=== PATIENT | male | born 1985 | race Caucasian/White ===

== ENCOUNTER → 2020-07-29 11:40 | Outpatient (BNVA) | payer MEDICARE, MEDICAID, SELFPAY | PROVIDERS: PCP Hospitalist; Visit Provider Urology | DX: A63.0 Anogenital (venereal) warts (principal) | CPT/HCPCS: 99212 ==

== ENCOUNTER 2021-03-09 14:59 | Outpatient (REF) | payer MEDICARE, MEDICAID, SELFPAY ==
--- NOTE | 2021-03-09 16:03 | MHC.AU.ANR ---
Adult Audiological Evaluation Date of Visit: 03/09/21 Reason for Appointment: Audiological re-evaluation to monitor the status of Mr. Dave's hearing loss. He has a know bilateral, asymmetrical, sensorineural hearing loss with his left ear hearing worse than his left. He has not used hearing aids before. Mr. Dave reports that age 19 experienced a sudden loss of hearing and onset of tinnitus, believed to be caused by a virus. Does patient feel they have a hearing loss?: If Yes, Which Ear?: Yes, both ears When Was Hearing Difficulty First Noticed?: 2006, age 19 Has hearing been tested previously?: Yes Previous Hearing Test Results: [facility] of [facility], 01/30/2019- Right ear- Normal hearing through 1000 Hz, sloping to a mild to severe sensorineural hearing loss from 4107-2202 Hz. Left ear- Normal hearing through 500 Hz, sloping to a mild to severe sensorineural hearing loss from 7056-3217 Hz. Left ear hears worse than the right. Ear History: Bothersome Tinnitus/Ringing/Noises in Ears: Both Ears Medical History: Medical History: Multiple Sclerosis Otoscopy: Right Ear: Unremarkable Left Ear: Unremarkable Tympanometry: Tympanometry performed due to: To assess integrity of the middle ear system Right Ear: Normal Middle Ear System (Type A) Left Ear: Normal Middle Ear System (Type A) Hearing Evaluation: Transducer(s) Used: Insert Earphones, Bone Conduction Method: Conventional Audiometry Stimuli Used: Pure Tones Right Ear: Description of Hearing: Normal hearing from 250-750 Hz, sloping to a mild to severe sensorineural hearing loss from 9574-2251 Hz. Left Ear: Description of Hearing: Normal hearing at 250 Hz, sloping to a mild to severe sensorineural hearing loss from 500-8000 Hz. Hearing in the left ear is 10-30 dBHL worse than the right from 500-2000 Hz and 8335-5701 Hz. Speech Recognition Threshold (SRT): Method Used: Monitored Live Voice Stimuli Used: Spondee Words Right Ear: 20 dBHL Left Ear: 35 dBHL Word Discrimination: Method: Recorded Lists Word Lists Used: NU-6 Right Ear: 92% at 60 dBHL Left Ear: 44% at 75 dBHL, 52% at 85 dBHL. Patient noted that sounds are more harsh and distorted in the left ear. Binaural: 96% at 80 dBHL Comparison: Compared to the most recent evaluation: Hearing is stable. Recommendations: Audiological re-evaluation in one year. ,Trial with amplification is recommended. Medical clearance from a physician is required before fitting. Binaural amplification is recommended. Discussed options with Mr. Dave. He is interested in a pair of MINERVA style hearing aids. Hearing aids will be ordered once medical clearance for hearing aid use is received from his PCP. Diagnosis: Primary Diagnosis: H90.3 Bilateral Sensorineural Hearing Loss Secondary Diagnosis: H93.13 Tinnitus, Bilateral Services Performed: Services Performed: Comprehensive Audiological Evaluation (CPT 67731) Tympanometry (CPT 88144) Signature: Provider: Serg Herrera, CCC-A
--- NOTE | 2021-03-09 16:13 | MHC.AU.HAS ---
Hearing Aid Evaluation Date of Visit: 03/09/21 Historical Information: Description of Hearing: Asymmetrical, mild to severe, SNHL with the left ear hearing worse than the right. Current personal amplification information, if applicable: None Summary: Based on the type and degree of Mr. Dave's hearing loss, binaural hearing aid use is recommended to help facilitate improved communication. He noted that the sound quality in his left ear is sharp and distorted, so he was advised if he cannot tolerate amplification to the left ear, a monaural fitting for the right ear will help as well. Agreed to try a binaural fitting with MINERVA style hearing aids. Hearing Aid Prescription: Based on the individual?s shared listening needs, communication environments, dexterity, desire for connectivity, and personal preferences, the following prescription for amplification has been made: Right ear: Precision Agriculture Specialist: [employer] Model: StackSearcheo P70-13T Battery Size: 13 Color: P4 - Roberta Papier Mache Molder: Size 1 M Left ear: Left ear prescription to be same as Right Hearing Aid above: Precision Agriculture Specialist: Phonak Model: [place] P70-13T Battery Size: 13 Color: P4 - Roberta Plan of Care: Medical Clearance to be requested from PCP/ENT. Hearing aids will be ordered when medical clearance is received. Hearing Instrument Fitting to be scheduled when materials arrive. Primary Diagnosis: H90.3 Bilateral Sensorineural Hearing Loss Secondary Diagnosis: H93.13 Tinnitus, Bilateral Signature: Provider: Serg Herrera, [facility]3]-A
--- NOTE | 2021-03-09 16:14 | MHC.AU.MED ---
Medical Clearance for Hearing Instrumentation Date: 03/09/21 Patient Name: Cale Dave Date of : 1985 Referring Provider: Migel He MD We have seen your patient on 03/09/21 and have determined that they are a candidate for amplification (See accompanying report). Specifically, they would benefit from: Hearing aid use in both ears There is a statute that addresses Medical Evaluation Requirements prior to fitting a patient with a hearing aid. According to [place] statute 265 CMR:6.03(1), (a) General. Except as provided in 265 CMR 6.03(1)(b), a second grade teacher shall not sell a hearing aid unless the prospective user has presented to the second grade teacher a written statement signed by a licensed physician that states that the patient's hearing loss has been medically evaluated and the patient may be considered a candidate for a hearing aid. The medical evaluation must have taken place within the preceding six months. Please note: Due to the [place] Statute referenced above, we cannot accept a signature other than that of a licensed physician. PILL PACKER and PA signatures cannot be accepted. I am in agreement with the above recommendation. There is no medical contraindication for hearing instrumentation. Physician Signature Date Physician Name (Printed)
== END 2021-03-09 15:00 | disposition home or self-care (01) ==
LOC: HO.SH 14:59
PROVIDERS: Visit Provider Hospitalist
DX: H90.3 Sensorineural hearing loss, bilateral (principal); H93.13 Tinnitus, bilateral
CPT/HCPCS: 92557; 92567; 92591

== ENCOUNTER 2021-04-21 15:09 | Outpatient (REF) | payer MEDICARE, MEDICAID, SELFPAY | END 2021-04-21 15:10 | disposition home or self-care (01) | LOC: HO.HAP 15:09 | PROVIDERS: Visit Provider Hospitalist | DX: Z46.1 Encounter for fitting and adjustment of hearing aid (principal); H90.3 Sensorineural hearing loss, bilateral; H93.13 Tinnitus, bilateral | CPT/HCPCS: V5011; V5020; V5160; V5261; V5266 ==

== ENCOUNTER 2021-05-07 03:01 | Emergency (ER) | payer MEDICARE, MEDICAID, SELFPAY ==
--- NOTE | ~2021-05-07 | XR_ITS ---
EXAMINATION: XR CHEST CLINICAL INFORMATION: Cough and shortness of breath COMPARISON: None TECHNIQUE: Frontal view of the chest was obtained. FINDINGS: Normal symmetric lung volumes. No parenchymal consolidation. No pleural effusion. No pneumothorax. Cardiomediastinal silhouette and pulmonary vascularity are within normal limits. No acute osseous abnormalities. XR/XR chest 1V IMPRESSION: No acute findings
[2021-05-07 03:10] VITALS: BP 125/77; PULSE 58; RESP 16; TEMP 37.2; O2SAT 100; BMI 24.0
[2021-05-07 03:50] LABS: COVID-19 Test Positive (Negative); IDNOW Serial# 9DD0AD1C
--- NOTE | 2021-05-07 05:19 | ED.SOB ---
HPI - SOB/Dyspnea General Chief Complaint: Dyspnea Stated Complaint: low O2, COVID + Time Seen by Provider: 05/07/21 04:22 Source: patient Mode of arrival: ambulatory History of Present Illness HPI Narrative: 36-year-old male with history MS who presents as an on vaccinated individual, who was diagnosed with COVID-19 on Tuesday and has subsequently undergone antibody infusion at [facility]. Patient presents with persistent sensation of difficulty breathing as well as anxiety. Related Data Home Medications Medication Instructions Recorded Confirmed betamethasone, augmented 0.05 % appl TOPICAL 07/29/20 topical cream buprenorphine 8 mg-naloxone 2 mg 20 mg SUBLINGUAL DAILY 07/29/20 sublingual film buspirone 10 mg tablet 10 mg PO BID 07/29/20 dextroamphetamine-amphetamine 30 1 tab PO BID 07/29/20 mg tablet tacrolimus 0.1 % topical ointment TOPICAL BID 07/29/20 Allergies Allergy/AdvReac Type Severity Reaction Status Date / Time No Known Allergies Allergy Unverified 01/17/20 16:46 [No Known Allergies*] Review of Systems Review of Systems: Pertinent positives and negatives as stated in HPI and 10 point review of systems is otherwise negative. [facility] Past Medical History Source: nursing notes reviewed Medical History Attention deficit disorder (ADD) Lyme disease Male infertility Penile wart Physical Exam Vital Signs: Vital Signs: Last Vital Signs Temp 98.9 F 05/07/21 03:10 Pulse 58 05/07/21 03:10 Resp 16 05/07/21 03:10 BP 125/77 05/07/21 03:10 Pulse Ox 100 05/07/21 03:10 BMI result Body Mass Index 24.0 VITAL SIGNS: Reviewed. GENERAL: Well developed, well nourished, in no acute distress. HEAD: Normocephalic/atraumatic EYES: PERRLA, EOMI EARS: Ext canals without abnormality, TMs non-bulging and non-erythematous NOSE: Nares patent bilateral OROPHARYNX: no oral lesions noted, posterior pharynx clear and non-erythematous without noted tonsillar enlargement/erythema/exudates NECK: Supple, no adenopathy LUNGS: Normal breath sounds. No adventitious sounds or accessory muscle use. SpO2<100> CARDIOVASCULAR: Regular rate and rhythm without noted murmurs ABDOMEN: Soft, non-tender, non-distended with bowel sounds. SKIN: Inspection of the skin reveals no rashes NEUROLOGIC: Alert and oriented x 4. Strength and sensation to light touch were grossly intact x 4. Course Course Course Narrative: 36-year-old male with history and clinical presentation consistent with natural course of COVID-19 infection and repeat testing as well as chest x-ray demonstrate positive COVID-19 test and chest x-ray is otherwise benign. Patient was informed of all results, reassured and otherwise noted to be without tachypnea or tachycardia, patient is afebrile and otherwise oxygenating very well on room air. He was instructed to return home and continue with isolation as per all state and Federal guidelines. MDM - SOB/Dyspnea Lab Data Labs: Lab Results 05/07/21 Range/Units 03:33 COVID-19 (IVON) Positive A (Negative) COVID-19 Clin Com See Note Discharge Plan Discharge Clinical Impression: Viral syndrome, Lab test positive for detection of COVID-19 virus Patient Disposition: Home, Self-Care Instructions: Viral Syndrome (ED), COVID-19 (Coronavirus Disease 2019) (ED) Additional Instructions: 1. Increase fluid hydration, especially with water. 2. Recommend [id number] Tylenol/ibuprofen as needed for body aches, headaches, temperatures greater than 100.4. 3. Follow-up with your primary care provider via telemedicine appointment in the next 1-2 days for re-evaluation and further outpatient management. You have been diagnosed with COVID-19 and was isolate for the next 14 days and follow all state, Federal guidelines. Return to the ER for worsening symptoms. Interventions: ED Discharge Assessment Last Done: 05/07/21 05:01
== END 2021-05-07 05:35 | disposition home or self-care (01) ==
LOC: HO.ED 05:25
PROVIDERS: Emergency Provider Student in an Organized Health Care Education/Training Program
DX: U07.1 COVID-19 (principal); B34.9 Viral infection, unspecified; R06.02 Shortness of breath; F41.9 Anxiety disorder, unspecified; G35 Multiple sclerosis
CPT/HCPCS: 71045; 87635; 99282; 99283

== ENCOUNTER 2023-11-08 08:43 | Outpatient (AMB) | payer MEDICARE, MEDICAID, SELFPAY ==
--- NOTE | 2023-11-08 08:48 | A.OFFVIS_ITS ---
Intake Visit Reasons: Fertility and issue Intake Note: New patient is present for Fertility Issues. Last seen By Dr Li 2020 Urology Med:None Antibiotic Allergies: None Blood Thinner: None Patient has been trying to conceive for about a year with no success Business Segment Manager Required: No Allergies No Known Allergies [No Known Allergies*] Allergy (Verified 11/08/23 08:51) HPI Comments Details: Cale BRITO is a very pleasant male. They are a patient of Dr He. They are seen in the office today for the following urologic conditions. - male fertility Male infertility Has been trying with partner for over 12 months. She is currently 37 Baseline evaluation for testosterone 240 at [facility] Longstanding use of Suboxone Plan for initial evaluation with sperm evaluation and repeat full panel hormone labs [facility] Medical History (Updated 11/08/23 @ 09:10 by Trace Li MD) Attention deficit disorder (ADD) Lyme disease Male infertility Penile wart Review of Systems Const Denies chills and Denies fever(s) Card Reports no additional complaints and Denies syncope Resp Denies cough GI Denies abdominal pain and Denies heartburn Reports as per HPI and Denies change in libido Neuro Denies syncope Psych Denies change in libido Endo Denies change in libido Physical Exam Const General: cooperative, healthy appearing, comfortable and no acute distress Orientation/consciousness: patient oriented x3 HEENT Face and sinus: Yes normal facial exam Mouth: moist mucous membranes Neck Neck: Yes normal visual inspection, Yes full ROM and Yes trachea midline Chest Chest palpation & inspection: normal inspection of the chest Resp Effort & Inspection: normal respiratory effort, able to speak in complete sentences and no respiratory distress GI Inspection: Yes normal to inspection Back/Spine/Pelvis Cervical Spine: normal cervical lordosis Thoracic/Lumbar Spine: thoracic and lumbar spine normal to inspection Skin General skin exam: no rashes or lesions noted Neuro General: patient oriented x3, gait normal, tone normal and moves all extremities Extrem General: Yes normal to inspection and Yes capillary refill normal Assessment & Plan Assessment & Plan (1) Male infertility: Code(s): N46.9 - Male infertility, unspecified Category: Medical Plan Sperm testing Baseline hormonal labs Orders: Orders Lutenizing Hormone Today N46.9 - Male infertility, unspecified Prolactin Today N46.9 - Male infertility, unspecified Testosterone, Free/Total Today N46.9 - Male infertility, unspecified Follicle Stimulating Hormone Today N46.9 - Male infertility, unspecified Patient Instructions: Imaging studies, laboratory and physical exam results were discussed and reviewed in detail. No major barriers to patient understanding were identified. An opportunity to ask questions regarding the treatment plan was provided. All questions were answered. The patient expressed understanding and agreement with the above treatment plan. The patient is aware they should contact our office by phone for worsening of their current condition or the appearance of new urologic symptoms. Compliance is encouraged with any medications and followup testing that is ordered. It is a privilege to participate in the urologic care of your patient. If you have any questions or concerns regarding treatment for the above conditions, or other urologic issues, please do not hesitate to contact me. The office telephone contact is [phone]. This note is constructed using voice recognition software. While every effort has been made to ensure accuracy gis coordinator errors may have been included. Yours sincerely, Dr Trace Li MD, [facility] - Urology Providers of Expert, Compassionate Care for the Genitourinary System Coding Level of Care Code Est Pt Level 4 (52755) Diagnoses Male infertility N46.9
== END 2023-11-08 09:27 | disposition home or self-care (01) ==
PROVIDERS: PCP Internal Medicine; Visit Provider Urology
DX: N46.9 Male infertility, unspecified (principal)

== ENCOUNTER → 2023-11-08 08:43 | Outpatient (BNVA) | payer MEDICARE, MEDICAID, SELFPAY | PROVIDERS: PCP Internal Medicine; Visit Provider Urology | DX: N46.9 Male infertility, unspecified (principal) | CPT/HCPCS: 36415; 83001; 83002; 84146; 84402; 84403; 99213 ==

== ENCOUNTER 2023-11-08 09:26 | Outpatient (REF) | payer MEDICARE, MEDICAID, SELFPAY ==
[2023-11-09 10:09] LABS: Follicle Stimulating Hormone 2.9 mIU/mL (1.4-12.8); Lutenizing Hormone 2.5 mIU/mL (1.5-9.3); Prolactin 3.6 ng/mL (2.0-18.0)
[2023-11-13 11:09] LABS: Testosterone, Total 299 ng/dL (250-1100)
== END 2023-11-08 09:27 | disposition home or self-care (01) ==
LOC: HO.10HDL 09:26
PROVIDERS: Visit Provider Urology
DX: Z13.89 Encounter for screening for other disorder (principal)
CPT/HCPCS: 36415; 83001; 83002; 84146; 84402; 84403

== ENCOUNTER 2023-12-14 08:25 | Outpatient (AMB) | payer MEDICARE, MEDICAID, SELFPAY ==
--- NOTE | 2023-12-14 08:25 | A.OFFVIS_ITS ---
Intake Visit Reasons: 1M Follow Up-Baseline Hormone Lab(set) Intake Note: Patient is Present for Telephone Follow Up Labs Urology Med: None Antibiotic Allergy:None Blood Thinner: None State Editor Required: No Allergies varenicline [From Chantix] Allergy (Mild, Verified 12/14/23 08:29) Unknown Medication List - Last Reconciled 12/14/23 by Trace Li MD betamethasone, augmented 0.05 % appl topical buprenorphine-naloxone 8-2 mg 20 mg sublingual DAILY buspirone 10 mg PO BID dextroamphetamine-amphetamine 30 mg 1 tab PO BID tacrolimus 0.1% topical BID tadalafil 5 mg PO DAILY 90 days HPI Comments Details: Cale BRITO is a very pleasant male. He is a patient of Dr He. He is seen in the office today for the following urologic conditions. - male fertility - hypogonadism Telemedicine Evaluation 15 min Consultation [employer] Seema Video Discussed findings Total motile sperm count normal Testosterone is borderline low Trial tadalafil for testosterone boost Lab work 6 months Male infertility Has been trying with partner for over 12 months. She is currently 37 Baseline evaluation for testosterone 240 at [facility] Longstanding use of Suboxone Labs - 11/22 testosterone 299, free T 41, FSH 2.9, LH 2.5 Semen analysis - 11/22 [place] - Total Motile Count 195 Plan for initial evaluation with sperm evaluation and repeat full panel hormone labs [facility] Medical History (Updated 12/14/23 @ 09:11 by Trace Li MD) Multiple sclerosis, relapsing-remitting History of intravenous drug use in remission Major depression Former smoker Attention deficit disorder (ADD) Lyme disease Male infertility Penile wart Surgical History (Updated 12/14/23 @ 08:29 by KAYCEE French) History of tonsillectomy H/O lymph node biopsy History of esophagogastroduodenoscopy (EGD) Family History (Updated 12/14/23 @ 08:30 by KAYCEE French) Mother Breast cancer Review of Systems Const All systems reviewed & are unremarkable except as noted in HPI and below Reports no additional complaints Resp Reports no additional complaints GI Reports no additional complaints Reports as per HPI Musc Reports no additional complaints Physical Exam Telemedicine evaluation Appropriate responses Regular breathing rate and rhythm HEENT Head: Yes normal to inspection Ears: hearing grossly normal bilaterally Eyes General: appearance normal, both eyes and all related structures Neck Neck: Yes normal visual inspection Chest Chest palpation & inspection: normal inspection of the chest Resp Effort & Inspection: normal respiratory effort and able to speak in complete sentences Telehealth Telehealth Telehealth Platform: [employer] Location of provider rendering services: practice address Location of patient: address on file Patient Identification confirmed using: Name, : Yes Telehealth method: video Patient verbally consented to treatment: Yes Patient verbally consented to billing insurance company: Yes Patient informed of any privacy concerns related to visit: Yes Minutes spent on Phone/Video with Pt.: 15 Assessment & Plan Assessment & Plan (1) Hypogonadism in male: Code(s): E29.1 - Testicular hypofunction Category: Medical Plan Six-month follow-up testosterone Orders: Orders Testosterone, Total 6 Months E29.1 - Testicular hypofunction Medications: New tadalafil 5 mg PO DAILY 90 days 90 tabs 1RF sexual activity E29.1 - Testicular hypofunction, N32.0 - Bladder-neck obstruction Patient Instructions: Imaging studies, laboratory and physical exam results were discussed and reviewed in detail. No major barriers to patient understanding were identified. An opportunity to ask questions regarding the treatment plan was provided. All questions were answered. The patient expressed understanding and agreement with the above treatment plan. The patient is aware they should contact our office by phone for worsening of their current condition or the appearance of new urologic symptoms. Compliance is encouraged with any medications and followup testing that is ordered. It is a privilege to participate in the urologic care of your patient. If you have any questions or concerns regarding treatment for the above conditions, or other urologic issues, please do not hesitate to contact me. The office telephone contact is [phone]. This note is constructed using voice recognition software. While every effort has been made to ensure accuracy engineering assistant errors may have been included. Yours sincerely, Dr Trace Li MD, [facility] - Urology Providers of Expert, Compassionate Care for the Genitourinary System Coding Level of Care Code Tele Est Pt Level 4 (98757) Diagnoses Hypogonadism in male E29.1
== END 2023-12-14 10:45 | disposition home or self-care (01) ==
PROVIDERS: PCP Internal Medicine; Visit Provider Urology
DX: E29.1 Testicular hypofunction (principal)
CPT/HCPCS: 99214

== ENCOUNTER → 2023-12-14 08:25 | Outpatient (BNVA) | payer MEDICARE, MEDICAID, SELFPAY | PROVIDERS: PCP Internal Medicine; Visit Provider Urology ==